=== PATIENT | female | born 1985 | race Caucasian/White ===

== ENCOUNTER 2016-11-24 19:21 | Inpatient (IN) | payer SELFPAY ==
[2016-11-24 19:27] VITALS: TEMP 97.7
--- NOTE | 2016-11-24 20:43 | OBPROG ---
OBG Progress Note Assessment/Plan: Assessment: IUP at 26 weeks Abdominal pain Morbid obesity Garand multip Plan: Stable from Obstetrical evaluation periumbilical hernia 3x3 cm difficult to eval 131KG Labs sent CBC and Chem Patient to return to ED for further evaluation for hernia and abdominal pain 11/24/16 20:39 11/24/16 20:51 Subjective: Patient is a 31 year old G7 P 5 at 26 weeks gestation being seen at [facility] who presents for evaluation for abdominal hernia and pain. Patient states has had known hernia for 10 days and started to really hurt today after a meal. Patient ate one hour ago and started having severe pain, No nausea, no emesis, no contractions no bleeding. and NO leaking of fluid Objective: Temp Pulse Resp BP Pulse Ox 36.5 C 94 24 H 133/76 H 96 11/24/16 19:25 11/24/16 19:25 11/24/16 19:25 11/24/16 19:25 11/24/16 19:25 - SVE Dilation (cm): 0 Effacement (%): 0 Station: -3 (extertnal os soft fingertip Cervix is long and internal os closed) Current Contraction Pattern: Other (Specify) (none) FHR (bpm): 140 FHR Pattern Variability: Moderate FHR Category: 1 Membranes: Intact Uterine Position/Fundal Height: Umbilicus +3 - Physical Exam General Appearance: mild distress Neck: non-tender, full range of motion, supple, normal inspection Respiratory: chest non-tender, lungs clear, normal breath sounds Cardiac/Chest: normal peripheral pulses, regular rate, rhythm Abdomen: normal bowel sounds, other (small periumbilical hernia 3x3cm difficult to evaluate) Extremities: normal range of motion Back: Normal inspection Skin: normal color Neuro/Psych: no motor/sensory deficits, alert, normal mood/affect, oriented x 3 ICD10 Worksheet Patient Problems: Problems Problem Status Diagnosed Abdominal pain Acute Hernia Acute Acute - ICD10 Problem Qualifiers (1) Qualifiers: Weeks of gestation: 26 weeks Qualified Description: 26 weeks gestation of Qualifier Code(s): (Z3A.26) 26 weeks gestation of (2) Hernia (3) Abdominal pain Qualifiers: Abdominal location: periumbilical Qualified Description: Periumbilical abdominal pain Qualifier Code(s): (R10.33) Periumbilical pain
[2016-11-24 21:05] LABS: HEMATOCRIT 35.8 % (38.0-47.0); HEMOGLOBIN 11.9 g/dL (12.6-16.3); MEAN CELL HEMOGLOBIN 30.4 pg (27.9-34.1); MEAN CELL HEMOGLOBIN CONCENTR. 33.2 g/dL (32.4-36.7); MEAN CELL VOLUME 91.3 fL (81.5-99.8); RED BLOOD CELL COUNT 3.92 10^6/uL (4.18-5.33); RED CELL DISTRIBUTION WIDTH 12.8 % (11.5-15.2)
[2016-11-24 21:34] LABS: ANION GAP 13 mEq/L (8-16); CALCIUM 9.4 mg/dL (8.5-10.4); CARBON DIOXIDE 21 mEq/l (22-31); CHLORIDE 105 mEq/L (97-110); CREATININE 0.6 mg/dL (0.6-1.0); GLOMERULAR FILTRATION RATE > 60; GLUCOSE 81 mg/dL (70-100); POTASSIUM 3.8 mEq/L (3.5-5.2); SODIUM 139 mEq/L (134-144)
--- NOTE | 2016-11-24 21:50 | EDPHY ---
HPI/HX/ROS/PE/MDM Narrative: Chief complaint: Abdominal pain HPI: 31-year-old who is a 26+ 6 weeks with a single live IUP presenting with abdominal pain worsening for the last 2 days. Patient states the pain is in her upper abdomen where she has a known hernia from a prior gallbladder surgery. Patient was seen initially labor and delivery with seen by Dr. Bee OBGYN. Patient's cervical os was closed. She is not in labor and has good function. She is sent here for further evaluation of possible hernia pain. Patient states she has had intermittent pain for months but has been significantly worse the last 2 days. No nausea or vomiting. No fevers or chills. No constipation or diarrhea. ROS: 10 point Review of Systems is negative except as noted in the HPI. Physical exam: Gen: Awake, Alert, No Distress HEENT: Nose: no rhinorrhea Eyes: PERRLA, EOMI Mouth: Moist mucosa Neck: Supple, no JVD Chest: nontender, lungs clear to auscultation Heart: S1, S2 normal, no murmur Abd: Patient is morbidly obese. Abdomen is soft with no guarding. She has tenderness in the right upper quadrant and periumbilical area around her surgical scar. She is difficult to examine secondary to her obesity. She does have focal tenderness in the small amount of fullness at the surgical site. Back: no CVA tenderness, no midline tenderness Ext: no edema, non-tender Skin: no rash Neuro: CN II-XII intact, Sensation grossly intact, Strength 5/5 in bilateral upper and lower extremities ED Course: Abdominal ultrasound shows what appears to be incarceration in the incisional hernia. This could be possibly omentum or bowel. Patient seen by Dr. Tobias Sears, general surgery. He has reviewed the ultrasound. His [place] taken to the operating room for laparoscopic look to evaluate for possible incarcerated hernia. General Time Seen by Provider: 11/24/16 20:58 Initial Vital Signs: Initial Vital Signs Temperature (C) 36.5 C 11/24/16 19:25 Heart Rate 94 11/24/16 19:25 Respiratory Rate 24 H 11/24/16 19:25 Blood Pressure 133/76 H 11/24/16 19:25 O2 Sat (%) 96 11/24/16 19:25 O2 Delivery Mode Room Air Allergies/Adverse Reactions: No Known Allergies Allergy (Verified 11/24/16 19:33) Home Medications: Medication Instructions Recorded 11/24/16 Departure - Departure Disposition: [facility] Inpatient Acute Clinical Impression: Incarcerated hernia Condition: Fair
--- NOTE | 2016-11-24 22:29 | US ---
Ultrasound of the Abdomen Limited HISTORY: Abdominal pain. Abdominal wall hernia. FINDINGS: Ultrasound imaging in the right upper quadrant area of pain demonstrates an abdominal wall hernia defect in the right mid abdomen with a loop of bowel extending through the hernia defect. Dr. Tobias Sears was present during examination. IMPRESSION: Right-sided abdominal wall hernia with bowel extending through the hernia.
[2016-11-24 22:36] VITALS: BP 136/86; PULSE 85; RESP 18; O2SAT 95
[2016-11-24 22:38] LABS: ALBUMIN 3.5 g/dL (3.5-5.0); BILIRUBIN,TOTAL 0.4 mg/dL (0.1-1.4); BILIRUBIN-CONJUGATED 0.2 mg/dL (0.0-0.5); BILIRUBIN-UNCONJUGATED 0.2 mg/dL (0.0-1.1)
--- NOTE | 2016-11-24 23:12 | US ---
Ultrasound Biophysical Profile at 2241 hours History: Abdominal wall hernia, preop, 26 weeks . Findings: Transabdominal ultrasound imaging of the gravid uterus demonstrates a single viable fetus w ith the heart rate of 120 beats per minute. biophysical profile demonstrates: breathing = 0 out of 2 points movement = 2 out of 2 points tone = 2 out of 2 points MIKA = 2 out of 2 points Impression: 1. biophysical profile 6 out of 8 points. 2. Amniotic MVP of 3 cm. 3. heart rate 120 beats per minute. Findings and recommendations discussed with Dr. Bee at 2305 hour, today.
[2016-11-24] MEDS ORDERED: MIDAZOLAM 2 MG/2 ML VIAL ONE (23:31)
[2016-11-24] MEDS ORDERED: fentaNYL 100 MCG/2 ML INJ ONE (23:32)
[2016-11-24] MEDS ORDERED: morphINE PF 5 MG/10 ML INJ ONE (23:35)
[2016-11-24] MEDS ORDERED: PROPOFOL/EMULSION 500 MG/50 ML BOTTLE IV ONE (23:42)
[2016-11-24] MEDS ORDERED: BUPIVACAINE 0.5% 30 ML SDV ONE (23:45)
[2016-11-24] MEDS ORDERED: ceFAZolin 1 GM VIAL ONE ×2 (23:48)
[2016-11-24] MEDS ORDERED: DEXAMETHASONE 4 MG/ML VIAL ONE (23:50)
[2016-11-24] MEDS ORDERED: ONDANSETRON 4 MG/2 ML VIAL ONE (23:50)
--- NOTE | 2016-11-25 00:08 | GHP ---
[f rep st] PREOP HISTORY AND PHYSICAL DATE OF ADMISSION: 11/24/2016 CHIEF COMPLAINT: The patient is a 31-year-old female who presents to the ER with abdominal pain, and complaining of a bulge above her umbilicus, which is quite tender. She has had some symptoms there for 2-3 weeks. She had a previous laparoscopic cholecystectomy through that area. HISTORY OF PRESENT ILLNESS: Present illness is complicated by the fact that she is 26 weeks , and has had some difficulties with pregnancies before, although she has had 5 children. She is jennifer te overweight, but the heart tones appear to be normal, and the ultrasound assessment of the ba by appears to be quite normal at this time. Ultrasound evaluation of the abdominal wall reveals a mi dline hernia with non-peristalsing bowel within the hernia sac and some fluid. There is some blood f low in and out of the sac, but the hernia is nonreducible in the emergency room. The risks and optio ns have been fully discussed with the patient and her , along with OB doctor and Anesthesia. We have offered her the option of a helicopter transfer to [place] to a higher care unit in [facility] in case there is some difficulty with her , with premature labor from the surgery. She prefers to stay here and not be transferred, and it is also complicated by the fact she has already b een here in the emergency room for 3-4 hours, and we need to move on her incarcerated hernia BETHANIE. PAST MEDICAL HISTORY: Includes a laparoscopic cholecystectomy, and the orthopedic repair of her left knee patellar fracture. MEDICATIONS: None. ALLERGIES: None. REVIEW OF SYSTEMS: Reveals no complicating medical problems, other than being overweight. She has n o hypertension, cardiac issues, asthma, diabetes, renal problems, etc, on a full complete review of s ystems. PHYSICAL EXAMINATION: GENERAL: Reveals an alert, cooperative, but uncomfortable 31-year-old female in no acute distress. HEAD AND NECK: Exam reveals her to be nonicteric. There is no adenopathy. C HEST: Clear to auscultation and percussion. CARDIAC: Regular rhythm. ABDOMEN: Quite obese and pr otuberant. She has scars from laparoscopic cholecystectomy, and she has a palpable tender mass in th e supraumbilical area consistent with an incarcerated hernia, and no other abdominal masses, and no o ther abdominal tenderness. Does have some bowel sounds. EXTREMITIES: Benign, with full pulses. IMPRESSION: 1. Incarcerated incisional ventral hernia. 2. [id number]-[id number] intrauterine . PLAN: An open urgent repair of incarcerated ventral hernia. Again, the risks and options have been fully discussed with the patient, including with a nurse practitioner, and the OB doctor, An esthesia, ER doctor, and myself, and she wishes to proceed with surgery here. Again, she has been of fered a flight to [place] to a high-risk area to have her surgery in case there were some com plications, and she is aware of the slight, but definite risk of premature contractions and premature labor. She is at the safest time for surgery in the second trimester. These issues have been ann jimenez discussed between all the parties, and she wishes to proceed. /[id number]/MODL
[2016-11-25] MEDS ORDERED: fentaNYL 100 MCG/2 ML INJ IVP PRN (00:17)
[2016-11-25] MEDS ORDERED: LABETALOL HCL 5 MG/ML 20 ML MDV IVP PRN (00:17)
[2016-11-25] MEDS ORDERED: NALOXONE HCL 0.4 MG/ML INJ IVP PRN (00:17)
[2016-11-25] MEDS ORDERED: PHENYLEPHRINE HCL 100 MCG/ML SYR IVP PRN (00:17)
[2016-11-25] MEDS ORDERED: ONDANSETRON 4 MG/2 ML VIAL IVP PRN (00:17)
[2016-11-25] MEDS ORDERED: OXYCODONE/APAP 5/325 TAB PO PRN (00:17)
[2016-11-25] MEDS ORDERED: MEPERIDINE 25 MG/ML SYR IVP PRN (00:17)
[2016-11-25] MEDS ORDERED: METOCLOPRAMIDE 10 MG/2 ML VIAL IVP PRN (00:17)
[2016-11-25] MEDS ORDERED: PHENYLEPHRINE HCL 100 MCG/ML SYR ONE (00:26)
--- NOTE | 2016-11-25 00:40 | POSTOPPROG ---
Post Op Note Date of Operation: 11/25/16 Surgeon: Tobias Sears Anesthesiologist: KIRSTEN Anesthesia: Spinal Pre-op Diagnosis: INCARCERATED INCISIONAL HERNIA Post-op Diagnosis: SAME Indication: BOWEL INCARCERATION Procedure: OPEN REPAIR INCARCERATED VENTRAL HERNIA Findings: VIABLE BOWEL/ 3CM DEFECT Inf/Abcess present in the surg proc area at time of surgery?: No Depth: Organ Space EBL: Minimal Complications: 0 Specimen(s): HERNIA SAC
[2016-11-25] MEDS ORDERED: HYDROmorphONE/DILAUDID 1 MG/ML SYR IVP PRN (00:42)
[2016-11-25] MEDS ORDERED: D5W 1/2 NS W/ 20 KCl/L 1,000 ML IV SCH (00:45)
[2016-11-25] MEDS: HYDROCODONE/APAP 5/325 TAB PO PRN ×5 (02:33→19:11)
--- NOTE | 2016-11-25 05:56 | SOAPPROG ---
SOAP Progress Note Assessment/Plan: Assessment: IUP at 26 weeks POD #0 s/p open repair of incarcerated bowel and ventral hernia Plan: Stable from Obstetrical evaluation continue monitoring Continue post operative care 11/24/16 20:39 11/24/16 20:51 11/25/16 05:52 Subjective: Min pain this morning. Feels occasional movement. no leaking of fluid no contractions no bleeding Objective: Vital Signs Temp Pulse Resp BP Pulse Ox 36.5 C 85 18 136/86 H 95 11/24/16 19:25 11/24/16 22:36 11/24/16 22:36 11/24/16 22:36 11/24/16 22:36 Laboratory Results 11/24/16 20:03 11/24/16 20:03 11/23/16 11/24/16 11/25/16 05:59 05:59 05:59 Intake Total 200 Balance 200 - Pending Discharge Pending Discharge Within 48 Hours: Yes Pending Discharge Date: 11/27/16 Pending Discharge Time: 11:00 Physical Exam - Physical Exam Respiratory: chest non-tender, lungs clear, normal breath sounds Cardiac/Chest: normal peripheral pulses, regular rate, rhythm Abdomen: normal bowel sounds, other (Gravid uterus. Ultrasound: burr Active + Cardiac activity adequate fluid 0545 11/25/16) Skin: normal color, warm/dry Extremities: normal range of motion, non-tender, normal inspection, normal capillary refill, other (SCD to lower extremities) Neuro/Psych: no motor/sensory deficits, alert, normal mood/affect, oriented x 3 ICD10 Worksheet Patient Problems: Problems Problem Status Diagnosed Abdominal pain Acute Hernia Acute Incarcerated hernia Acute Acute - ICD10 Problem Qualifiers (1) Qualifiers: Weeks of gestation: 26 weeks Qualified Description: 26 weeks gestation of Qualifier Code(s): (Z3A.26) 26 weeks gestation of (2) Hernia (3) Abdominal pain Qualifiers: Abdominal location: periumbilical Qualified Description: Periumbilical abdominal pain Qualifier Code(s): (R10.33) Periumbilical pain
--- NOTE | 2016-11-25 10:04 | SOAPPROG ---
SOAP Progress Note Assessment/Plan: Assessment: 31yo female s/p open ventral hernia repair, 26 weeks . Stable from OB perspective today. tolerating clears, passing small amount of gas, worried about giving and rupturing hernia repair, wants to go home. PE awake, alert comfortable abdomen midline bandage dry, abdomen soft, nontender Plan: regular diet possibly home late today (probably Friday) if ambulates well, tolerates regular diet, if ok from OB perspective. will discuss with Dr Sears reviewed lifting restrictions 11/25/16 10:01 Objective: Vital Signs Temp Pulse Resp BP Pulse Ox 36.5 C 85 18 136/86 H 95 11/24/16 19:25 11/24/16 22:36 11/24/16 22:36 11/24/16 22:36 11/24/16 22:36 Laboratory Results 11/24/16 20:03 11/24/16 20:03 11/24/16 11/25/16 11/26/16 05:59 05:59 05:59 Intake Total 200 Balance 200 ICD10 Worksheet Patient Problems: Problems Problem Status Diagnosed Abdominal pain Acute Hernia Acute Incarcerated hernia Acute Acute
[2016-11-25] MEDS: PRENATAL VIT 1 EACH TAB PO SCH (10:28)
--- NOTE | 2016-11-25 10:34 | SOAPPROG ---
SOAP Progress Note Assessment/Plan: Assessment: 12 MALE WITH RLQ PAIN, BETTER AFTER MORPHINE/ WBC OK BUT US SHOWS DISTAL APPENDICITIS ABD SOFT WITH SOME RLQ TENDERNESS BUT NO REBOUND UNCERTAIN ABOUT APPENDICITIS EXCEPT FOR US FINDINGS RISKS AND OPTIONS FULLY DISCUSSED WITH PT AND MOM WHO WISH TO PROCEED Plan: LENIN APPE 11/25/16 10:32 Objective: Vital Signs Temp Pulse Resp BP Pulse Ox 36.5 C 85 18 136/86 H 95 11/24/16 19:25 11/24/16 22:36 11/24/16 22:36 11/24/16 22:36 11/24/16 22:36 Laboratory Results 11/24/16 20:03 11/24/16 20:03 11/24/16 11/25/16 11/26/16 05:59 05:59 05:59 Intake Total 200 Balance 200 ICD10 Worksheet Patient Problems: Problems Problem Status Diagnosed Abdominal pain Acute Hernia Acute Incarcerated hernia Acute Acute
--- NOTE | 2016-11-25 10:36 | POSTOPPROG ---
Post Op Note Date of Operation: 11/25/16 Surgeon: Tobias Sears Quebracho Tanner: ALECIA HILL Anesthesiologist: MARYJANE Anesthesia: GET(General Endotracheal) Pre-op Diagnosis: ACUTE APPE Post-op Diagnosis: SAME Indication: + IMAGING Procedure: LAP APPE Findings: DISTAL APPENDIX INFLAMMATION AND SEROUS PELVIC FLUID Inf/Abcess present in the surg proc area at time of surgery?: Yes Depth: Organ Space EBL: Minimal Complications: 0 Specimen(s): APPENDIX
--- NOTE | 2016-11-25 10:42 | SOAPPROG ---
SOAP Progress Note Assessment/Plan: Assessment: 12 MALE WITH RLQ PAIN, BETTER AFTER MORPHINE/ WBC OK BUT US SHOWS DISTAL APPENDICITIS ABD SOFT WITH SOME RLQ TENDERNESS BUT NO REBOUND UNCERTAIN ABOUT APPENDICITIS EXCEPT FOR US FINDINGS RISKS AND OPTIONS FULLY DISCUSSED WITH PT AND MOM WHO WISH TO PROCEED Plan: LAP APPE 11/25/16 10:32 11/25/16 10:41 PREVIOUS NOTE AND OPNOTE ON WRONG PT BUT UNABLE TO REMOVE/ THIS PT DIDNOT HAVE APPENDECTOMY Objective: Vital Signs Temp Pulse Resp BP Pulse Ox 36.5 C 85 18 136/86 H 95 11/24/16 19:25 11/24/16 22:36 11/24/16 22:36 11/24/16 22:36 11/24/16 22:36 Laboratory Results 11/24/16 20:03 11/24/16 20:03 11/24/16 11/25/16 11/26/16 05:59 05:59 05:59 Intake Total 200 Balance 200 ICD10 Worksheet Patient Problems: Problems Problem Status Diagnosed Abdominal pain Acute Hernia Acute Incarcerated hernia Acute Acute
--- NOTE | 2016-11-25 11:45 | GOP ---
[f rep st] OPERATIVE REPORT DATE OF OPERATION: 11/25/2016 SURGEON: Tobias Sears MD OPHTHALMOLOGIST RETINA SPECIALIST: None. ANESTHESIOLOGIST: Dr. Joseph. PREOPERATIVE DIAGNOSIS: Incarcerated incisional ventral hernia. POSTOPERATIVE DIAGNOSIS: Incarcerated incisional ventral hernia. PROCEDURE PERFORMED: Open repair of incarcerated incisional ventral hernia. FINDINGS: The patient was found to have friable bowel, which reduced itself on initiation of spinal anesthesia. She had a tight hernia defect of approximately 3 cm just above the umbilicus, previous l aparoscopy trocar site. DESCRIPTION OF PROCEDURE: Patient taken to the operating room, where she received satisfactory gener al endotracheal anesthesia by Dr. Joseph, placed in supine position but tilted to the her left with a wedge support. She was prepped and draped in the usual sterile fashion. A longitudinal incision was made just above her umbilicus. Dissection extended down through subcutaneous tissue, and the hernia sac was identified. It was carefully dissected free from surrounding subcutaneous tissue and away f rom the umbilical skin. The sac was opened and its contents were reduced. The umbilical sac was div ided with electrocautery and removed. Hemostasis was assured. The defect was then closed in a pants -over-vest 2-layer closure with interrupted 0 Ethibond mattress sutures. A 2nd small, less than 1 cm defect, was found just above this area and it, too, was closed with 0 Ethibond [id number] sutur es. The wound was infiltrated with Marcaine. Subcu was closed with 3-0 Vicryl, and the skin with sk in taras. She tolerated the procedure well, was taken to recovery room in good condition. There w ere no complications. No obvious problems with her intrauterine . She will be monitored ag ain in the recovery room. Copy requested to: [facility] /[id number]/MODL
[2016-11-25] MEDS ORDERED: DOCUSATE SODIUM 100 MG CAP PO ONE (16:04)
[2016-11-25] MEDS: DOCUSATE SODIUM 100 MG CAP PO SCH ×2 (16:11→19:04)
--- NOTE | 2016-11-25 20:21 | SOAPPROG ---
SOAP Progress Note Assessment/Plan: Assessment: Records reviewed from [facility] in [facility]: Patient is 26w6d today, MIGUEL = 02/25/17 (by 14 week US, not consistent with LMP) Prior x term x 5. 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 FOB tested and is not a K antigen carrier. No further f/u per [facility] H/o of macrosomic (>4000 pounds). Had early 1 hr this ( resulted 11/21 = 154). will need follow up for 3 hr glucola Normal anatomy US at 25 weeks, completed at [facility], fetus 53rd% (11/12/16) Known abdominal hernia, now s/p repair as she presented with incarceration last night Pt desires sterilization, is undergoing process to get this completed at [facility] Morbid obesity-weight gain is being monitored closely, and also growth is planned at 28 weeks No record of any genetic screening being performed. Possible chronic hypertension, had an elevated BP when evaluated in ED for pain , otherwise BPs are all less than 140/90 at her visits. Labs reviewed: B+, anti-K pos Hct 39% Rub non-immune RPR, HBsAg, HIV NR GC/CT Neg Patient is currently doing well from an OB standpoint. FHR reassuring, NST reviewed, FHR 130-140, moderate variability, + accels, no decels. No contractions. No evidence of labor. Plan: Post-op care per general surgery Patient will need close outpatient OB follow-up with her care providers after discharge. She is due for another growth US (28 weeks) and also a 3 hr glucola. labor precautions given. 11/25/16 20:07 11/25/16 20:22 Subjective: Pain controlled with medications. No contractions, leaking, bleeding. Baby active. Has ambulated and void. Passing a little flatus. Tolerating regular diet. Objective: Vital Signs Temp Pulse Resp BP Pulse Ox 36.5 C 85 18 136/86 H 95 11/24/16 19:25 11/24/16 22:36 11/24/16 22:36 11/24/16 22:36 11/24/16 22:36 Laboratory Results 11/24/16 20:03 11/24/16 20:03 11/24/16 11/25/16 11/26/16 05:59 05:59 05:59 Intake Total 200 Balance 200 Gen: alert, awake, NAD Resp: unlabored, nasal cannula O2 in place CV: RRR Abd: obese, soft, bandage clean/dry/intact, appropriately tender Ext: no edema ICD10 Worksheet Patient Problems: Problems Problem Status Diagnosed Abdominal pain Acute Hernia Acute Incarcerated hernia Acute Acute
[2016-11-25] MEDS: SIMETHICONE 80 MG TAB CHEW PO SCH (21:25)
[2016-11-25] MEDS ORDERED: CEFAZOLIN 1 GM/DEXTROSE/50 ML BAG IV ONE (23:46)
[2016-11-25] MEDS: OXYCODONE/APAP 5/325 TAB PO PRN (23:48)
[2016-11-26] MEDS: OXYCODONE/APAP 5/325 TAB PO PRN ×2 (05:26→10:03)
--- NOTE | 2016-11-26 08:16 | SOAPPROG ---
SOAP Progress Note Assessment/Plan: Assessment/Plan: 31 Y gravid F s/p open incarcerated umbilical hernia repair. Doing well. D/c to home today. Seen with OB. 11/26/16 08:14 Subjective: Pain controlled. Eating fine. Using binder bc of cough. Objective: Vital Signs Temp Pulse Resp BP Pulse Ox 36.5 C 85 18 136/86 H 95 11/24/16 19:25 11/24/16 22:36 11/24/16 22:36 11/24/16 22:36 11/24/16 22:36 Laboratory Results 11/24/16 20:03 11/24/16 20:03 11/25/16 11/26/16 11/27/16 05:59 05:59 05:59 Intake Total 200 Balance 200 alert, nad no wob rrr abd soft, gravid, inc cdi, no erythema, no recurrent hernia ICD10 Worksheet Patient Problems: Problems Problem Status Diagnosed Abdominal pain Acute Hernia Acute Incarcerated hernia Acute Acute
--- NOTE | 2016-11-26 08:17 | SOAPPROG ---
SOAP Progress Note Assessment/Plan: Assessment: 12 MALE WITH RLQ PAIN, BETTER AFTER MORPHINE/ WBC OK BUT US SHOWS DISTAL APPENDICITIS ABD SOFT WITH SOME RLQ TENDERNESS BUT NO REBOUND UNCERTAIN ABOUT APPENDICITIS EXCEPT FOR US FINDINGS RISKS AND OPTIONS FULLY DISCUSSED WITH PT AND MOM WHO WISH TO PROCEED Plan: LAP APPE 11/25/16 10:32 11/25/16 10:41 PREVIOUS NOTE AND OPNOTE ON WRONG PT BUT UNABLE TO REMOVE/ THIS PT DIDNOT HAVE APPENDECTOMY 11/26/16 08:17 WOUND OK/ AFEBRILE/ EATING/ BABY OK/ HOME SOON Objective: Vital Signs Temp Pulse Resp BP Pulse Ox 36.5 C 85 18 136/86 H 95 11/24/16 19:25 11/24/16 22:36 11/24/16 22:36 11/24/16 22:36 11/24/16 22:36 Laboratory Results 11/24/16 20:03 11/24/16 20:03 11/25/16 11/26/16 11/27/16 05:59 05:59 05:59 Intake Total 200 Balance 200 ICD10 Worksheet Patient Problems: Problems Problem Status Diagnosed Abdominal pain Acute Hernia Acute Incarcerated hernia Acute Acute
--- NOTE | 2016-11-26 08:21 | SOAPPROG ---
SOAP Progress Note Assessment/Plan: Assessment: 31 y.o. at 27 weeks post-op day #2 s/p hernia repair. General surgery was in and examined patient and removed bandage with taras noted. Incision appears CDI and well-approximated with taras intact without evidence of infection noted. Plan: General surgery will discharge patient to home with post-operative precautions. Encouraged patient to call her OB clinic and schedule f/u appointment this week. Patient discharged to home with PTL precautions, warning signs and FKCs. 11/26/16 08:17 Subjective: Reports feeling fatigued with good pain control. Reports feeling good movement. Denies vaginal bleeding, uterine cramping/ contractions or leaking amniotic fluid. Objective: Vital Signs Temp Pulse Resp BP Pulse Ox 36.5 C 85 18 136/86 H 95 11/24/16 19:25 11/24/16 22:36 11/24/16 22:36 11/24/16 22:36 11/24/16 22:36 Laboratory Results 11/24/16 20:03 11/24/16 20:03 11/25/16 11/26/16 11/27/16 05:59 05:59 05:59 Intake Total 200 Balance 200 - Time Spent With Patient Time Spent With Patient: 20 minutes - Pending Discharge Pending Discharge Within 24 Hours: Yes Pending Discharge Date: 11/27/16 Pending Discharge Time: 11:00 Physical Exam - Physical Exam General Appearance: WD/WN, alert, no apparent distress EENT: normal ENT inspection Neck: non-tender, normal inspection Respiratory: lungs clear, normal breath sounds Cardiac/Chest: regular rate, rhythm Abdomen: non-tender, soft, other (incision with taras is CDI) Pelvic Exam: deferred Rectal: deferred Back: Normal inspection Skin: normal color, warm/dry Lymphatic: no adenopathy Extremities: normal range of motion Neuro/Psych: alert, normal mood/affect, oriented x 3 ICD10 Worksheet Patient Problems: Problems Problem Status Diagnosed Abdominal pain Acute Hernia Acute Incarcerated hernia Acute Acute
[2016-11-26] MEDS: PRENATAL VIT 1 EACH TAB PO SCH (10:03)
[2016-11-26] MEDS: SIMETHICONE 80 MG TAB CHEW PO SCH ×2 (10:03→14:37)
[2016-11-26] MEDS: DOCUSATE SODIUM 100 MG CAP PO SCH (10:03)
--- NOTE | 2016-12-03 14:37 | GDS ---
[f rep st] DISCHARGE SUMMARY DISCHARGE DIAGNOSES: 1. Incarcerated periumbilical ventral hernia. 2. Gravid at 27 weeks. PROCEDURES: Open repair of incarcerated incisional ventral hernia. INTRAOPERATIVE FINDINGS: Patient was found to have friable bowel, which reduced itself on initiation of spinal anesthesia. She had a tight hernia defect of approximately 3 cm just above the umbilicus at a previous laparoscopic trocar site. CONSULTATION: Dr. Padmini aMrie MD, [facility]. HOSPITAL COURSE: The patient was a 31-year-old female who was 27 weeks when she presented w ith an incarcerated, painful, periumbilical ventral hernia. Obstetrics was consulted. Decision was made to bring the patient to the operating room with spinal anesthesia for repair. The procedure was uncomplicated. She tolerated it well. Monitoring showed no signs of distress. The patient's postoperative course was relatively uneventful. monitoring was continued. Her p ain was controlled. Her diet was advanced. DISCHARGE INSTRUCTIONS: Patient was discharged to home in stable condition with plans for outpatient followup. She will eventually need staple removal. We also asked her to contact her regular [facility] , as they will likely want to see her in the near future as well. She is to avoid any heavy lifting, pushing, or pulling. We also discussed the chance that this could recur during labor due to pressur e, however, she is due in February, and hopefully she will be healed enough and avoid this. /[id number]/MODL
== END 2016-11-26 13:45 | disposition home or self-care (01) | DRG 781 ==
LOC: OBSVTOIN 19:47 → FLD 19:47
PROVIDERS: ADMIT Obstetrics & Gynecology; ATTEND Obstetrics & Gynecology
PROC: 0WQF0ZZ Repair Abdominal Wall, Open Approach (ICD-10-PCS; principal; 2016-11-24 23:30)
DX: O99.612 Diseases of the digestive system complicating pregnancy, second trimester (principal); K43.0 Incisional hernia with obstruction, without gangrene; O99.212 Obesity complicating pregnancy, second trimester; E66.01 Morbid (severe) obesity due to excess calories; Z68.42 Body mass index [BMI] 45.0-49.9, adult; Z3A.36 36 weeks gestation of pregnancy
CPT/HCPCS: 86850-90; 86870-90; 86905-90; 99001-90; J0690; J1100; J2250; J2274; J2370; J2405; J2704; J3010

== ENCOUNTER 2017-08-25 05:54 | Emergency (ER) | payer SELFPAY ==
[2017-08-25 06:03] VITALS: TEMP 98.8
[2017-08-25] MEDS ORDERED: IBUPROFEN 600 MG TAB PO ONE (06:20)
[2017-08-25] MEDS ORDERED: SUMAtriptan 6 MG/0.5 ML VIAL SC ONE (06:20)
[2017-08-25] MEDS ORDERED: ACETAMINOPHEN 500 MG TAB PO ONE (06:20)
[2017-08-25] MEDS ORDERED: METOCLOPRAMIDE 10 MG TAB PO ONE (06:21)
--- NOTE | 2017-08-25 06:25 | EDPHY ---
H & P Stated Complaint: r sided head ache and vision spots Time Seen by Provider: 08/25/17 06:09 HPI/ROS: HPI The patient presents with headache which is right-sided, frontal, throbbing in nature it has been present for the last 2 days. It started slowly and has not improved, thus she comes in. She has taken a Percocet with some improvement in her headache. She had associated nausea and vomiting yesterday. She reports that she saw a bright light in her visual field when she got up from sleep 2 nights ago lasting for seconds and then resolving on its own. She has no vision changes currently. Three days ago, she got news that her school age daughter was having some difficulty in school and was going to have some interventions. This caused her to feel very stressed and anxious and she feels this is what provoked her headache. She does not have a prior history of migraine headaches. REVIEW OF SYSTEMS Constitutional: No fever, no chills. Eyes: No discharge. ENT: No sore throat. Cardiovascular: No chest pain, no palpitations. Respiratory: No cough, no shortness of breath. Gastrointestinal: No abdominal pain, positive for vomiting. Genitourinary: No hematuria. Musculoskeletal: No back pain. Skin: No rashes. Neurological: Positive for headache PMHx: Currently breast-feeding 6-month-old, history of cholecystectomy and appendectomy Soc Hx: Lives at home with and 6 kids PHYSICAL General Appearance: Alert, no distress Eyes: Pupils equal and round no pallor or injection ENT, Mouth: Mucous membranes moist Respiratory: There are no retractions, lungs are clear to auscultation Cardiovascular: Regular rate and rhythm Gastrointestinal: Abdomen is soft and non-tender, no masses, bowel sounds normal Neurological: A&O x3, cranial nerves 2-12 intact, 5/5 strength in upper and lower extremities which is symmetric. Skin: Warm and dry, no rashes Musculoskeletal: Neck is supple non tender Extremities: symmetrical, full range of motion Psychiatric: Patient is oriented X 3, there is no agitation Source: Patient Exam Limitations: No limitations - Personal History LMP (Females 10-55): Over 28 Days Ago Current Tetanus/Diphtheria Vaccine: Yes Current Tetanus Diphtheria and Acellular Pertussis (TDAP): Yes - Medical/Surgical History Hx Asthma: No Hx Chronic Respiratory Disease: No Hx Diabetes: No Hx Cardiac Disease: No Hx Renal Disease: No Hx Cirrhosis: No Hx Alcoholism: No Hx HIV/AIDS: No Hx Splenectomy or Spleen Trauma: No Other PMH: Gall bladder removed 2016. Appendectomy. Knee surgery . anemia. ovaran cyst - Social History Smoking Status: Never smoked Constitutional: Initial Vital Signs Temperature (C) 37.1 C 08/25/17 05:58 Heart Rate 85 08/25/17 05:58 Respiratory Rate 20 08/25/17 05:58 Blood Pressure 119/79 08/25/17 05:58 O2 Sat (%) 96 08/25/17 05:58 O2 Delivery Mode Room Air Allergies/Adverse Reactions: No Known Allergies Allergy (Verified 11/24/16 19:33) Home Medications: Medication Instructions Recorded Ondansetron Odt [Zofran Odt 4 mg 4 mg PO Q4 PRN #10 tab 08/25/17 (*)] Medical Decision Making Differential Diagnosis: This is a 31-year-old female who presents with 2 days of progressive unilateral throbbing headache associated with photophobia. On exam she has a normal neurologic assessment. Differential diagnosis includes migraine headache, tension type headache, less likely meningitis given no fever or nuchal rigidity, less likely subarachnoid hemorrhage given no neurologic deficits. In the emergency department, the patient received oral medications per her preference. She had improvement in her headache. I feel migraine is the most likely cause of her symptoms. As she will be discharged home with follow up with her primary care doctor. Departure - Departure Disposition: Home, Routine, Self-Care Clinical Impression: Headache Qualifiers: Headache type: unspecified Headache chronicity pattern: acute headache Intractability: not intractable Qualified Code(s): R51 - Headache Condition: Good Instructions: Acute Headache (ED), Migraine Headache (ED) Additional Instructions: Please make sure to drink plenty of fluids. You should take Ibuprofen 400 mg every 6 hours as needed for your headache. I have given you a prescription for some medicine for nausea that you can take as needed. Referrals: [facility],. [Primary Care Provider] - As per Instructions Prescriptions: Ondansetron Odt [Zofran Odt 4 mg (*)] 4 mg PO Q4 PRN #10 tab PRN Reason: Nausea/Vomiting, Can'T Take Po
[2017-08-25 08:01] VITALS: BP 128/74; PULSE 70; RESP 16; O2SAT 96
== END 2017-08-25 08:01 | disposition home or self-care (01) ==
DX: R51 Headache (principal)
CPT/HCPCS: J3030

== ENCOUNTER 2018-01-13 10:03 | Emergency (ER) | payer SELFPAY ==
[2018-01-13 10:10] VITALS: RESP 18
[2018-01-13] MEDS ORDERED: IBUPROFEN 600 MG TAB PO ONE ×2 (10:27→10:28)
--- NOTE | 2018-01-13 11:22 | EDPHY ---
H & P Time Seen by Provider: 01/13/18 10:32 HPI/ROS: CHIEF COMPLAINT: Right wrist injury HISTORY OF PRESENT ILLNESS: 32-year-old female presents to the emergency department with isolated pain to her right wrist. Patient states earlier this morning she had her 11 month old in a car seat and she picked it up with her right hand and somehow flexed her right wrist and felt a pop in her right wrist as well as severe pain. The pain has persisted. She is right-hand dominant. She has pain especially with movement. ROS: Denies numbness or tingling in her fingers, pain in her right hand, right elbow or shoulder. Past Medical/Surgical History: Cholecystectomy, appendectomy, knee surgery, anemia Social History: and lives in [place] Smoking Status: Never smoked Physical Exam: On examination the patient has reproducible pain with palpation of the dorsal aspect of her right wrist specially over the distal radius. There is some mild swelling associated with this. No palpable crepitus. She has full supination and pronation. She has pain especially with flexion and extension of her right wrist. Nontender to palpate in the anatomic snuffbox. Nontender to palpate in the right elbow or shoulder. Full sensation to light touch with normal 2 point discrimination. Strong radial pulse at the wrist Constitutional: Initial Vital Signs Temperature (C) 36.8 C 01/13/18 10:06 Heart Rate 79 01/13/18 10:06 Respiratory Rate 18 01/13/18 10:06 Blood Pressure 156/115 H 01/13/18 10:06 O2 Sat (%) 95 01/13/18 10:06 O2 Delivery Mode Room Air Allergies/Adverse Reactions: No Known Allergies Allergy (Verified 01/13/18 10:05) Home Medications: Medication Instructions Recorded NK [No Known Home Meds] 01/13/18 MDM/Departure - MDM Imaging Results: Imaging Impressions Wrist X-Ray 01/13/18 10:24 Impression: Possible dislocation of the distal radial ulnar joint. Results discussed with Dr. Bagley at 10:[address] 01/13/18 11:19 Impression: 1. Negative. Normally aligned distal radioulnar joint. No evidence of dislocation or subluxation. 2. No acute fracture. Findings discussed with Emergency Department physician, Maki Amaro PA-C, on 01/13/2018, 13:10. Imaging: Discussed imaging studies w/ bingo caller Radiologist, I viewed and interpreted images myself Procedures: The patient was placed in a Velcro wrist splint examined post application in good placement with normal [employer]. Medications Given: Discontinued Medications Ibuprofen (Motrin) 600 mg PO EDNOW ONE Stop: 01/13/18 10:28 Last Admin: 01/13/18 10:29 Dose: 600 mg ED Course/Re-evaluation: 32-year-old female presents with right wrist pain. On plain film x-ray there was question of possible dislocation of the distal radial ulnar joint. CT imaging of the right wrist was obtained which revealed no evidence of fracture or evidence of dislocation. Patient was placed in Velcro wrist splint and given orthopedic referral. - Depart Disposition: Home, Routine, Self-Care Clinical Impression: Right wrist sprain Qualifiers: Encounter type: initial encounter Qualified Code(s): S63.501A - Unspecified sprain of right wrist, initial encounter Condition: Good Instructions: Wrist Sprain (ED) Additional Instructions: Splint for comfort and support. Ibuprofen 600 mg every 8 hr as needed for pain. Referrals: Ronny Corral MD [Medical Doctor] - 5-7 days, call for appt. (Orthopedic surgeon on-call)
[2018-01-13 13:20] VITALS: BP 125/78; PULSE 87; TEMP 98.6; O2SAT 95
== END 2018-01-13 13:20 | disposition home or self-care (01) ==
DX: S63.501A Unspecified sprain of right wrist, initial encounter (principal); X50.9XXA Other and unspecified overexertion or strenuous movements or postures, initial encounter; Y99.8 Other external cause status; Y93.89 Activity, other specified
CPT/HCPCS: L3908

== ENCOUNTER 2018-11-10 17:44 | Emergency (ER) | payer SELFPAY ==
[2018-11-10] MEDS ORDERED: ONDANSETRON DISINTEGRATING 4 MG TAB PO ONE (18:19)
[2018-11-10] MEDS ORDERED: METOCLOPRAMIDE 10 MG/2 ML VIAL IVP ONE (18:33)
[2018-11-10] MEDS ORDERED: NS 1,000 ML IV ONE (18:33)
[2018-11-10] MEDS ORDERED: DEXAMETHASONE 10 MG/ML VIAL IVP ONE (18:33)
[2018-11-10] MEDS ORDERED: KETOROLAC 30 MG/1 ML SDV IVP ONE (18:33)
--- NOTE | 2018-11-10 18:39 | EDPHY ---
H & P Stated Complaint: rand nausea Time Seen by Provider: 11/10/18 18:29 HPI/ROS: CHIEF COMPLAINT: Headache, vomiting HISTORY OF PRESENT ILLNESS: Patient is a 33-year-old morbidly obese female who comes to the emergency department complaining of a headache and vomiting that began this morning. She states that she developed a headache soon after waking up. It was gradual in onset and worsening throughout the day. She states that it is the worst headache she has ever had. She does not typically have headaches or migraines. She denies trauma. No fever. No recent respiratory type infection. No neck pain or stiffness. No rash. She denies although has not had a period in 3 months. She states her periods are very irregular. She took Tylenol earlier this morning but has not taken any medications since. [place] the [place] up man her mom and vomited twice on the way. Severity: Severe Modifying factors: No improvement with Tylenol early this morning REVIEW OF SYSTEMS: Constitutional: denies: chills, fever, recent illness, recent injury EENTM: denies: blurred vision, double vision, nose congestion Respiratory: denies: cough, shortness of breath Cardiac: denies: chest pain, irregular heart rate, lightheadedness, palpitations Gastrointestinal/Abdominal: See HPI denies: abdominal pain, diarrhea, blood streaked stools Genitourinary: denies: dysuria, frequency, hematuria, pain Musculoskeletal: denies: joint pain, muscle pain Skin: denies: lesions, rash, jaundice, bruising Neurological: See HPI denies: numbness, paresthesia, tingling, dizziness, weakness Hematologic/Lymphatic: denies: blood clots, easy bleeding, easy bruising Immunologic/allergic: denies: HIV/AIDS, transplant 10 systems reviewed and negative except as noted EXAM: GENERAL: Well-appearing, morbidly obese and in no acute distress. HEAD: Atraumatic, normocephalic. EYES: Pupils equal round and reactive to light, extraocular movements intact, sclera anicteric, conjunctiva are normal. ENT: TMs normal, nares patent, oropharynx clear without exudates. Moist mucous membranes. NECK: Normal range of motion, supple without lymphadenopathy or JVD. LUNGS: Breath sounds clear to auscultation bilaterally and equal. No wheezes rales or rhonchi. HEART: Regular rate and rhythm without murmurs, rubs or gallops. ABDOMEN: Soft, nontender, normoactive bowel sounds. No guarding, no rebound. No masses appreciated. BACK: No CVA tenderness, no spinal tenderness, step-offs or deformities EXTREMITIES: Normal range of motion, no pitting or edema. No clubbing or cyanosis. NEUROLOGICAL: Cranial nerves II through XII grossly intact. Normal speech, normal gait. 5/5 strength, normal movement in all extremities, normal sensation , normal reflexes PSYCH: Normal mood, normal affect. SKIN: Warm, dry, normal turgor, no visible rashes or lesions. Source: Patient Exam Limitations: No limitations - Personal History LMP (Females 10-55): IUD In Place Current Tetanus Diphtheria and Acellular Pertussis (TDAP): Yes Tetanus Vaccine Date: < 10 years - Medical/Surgical History Hx Asthma: No Hx Chronic Respiratory Disease: No Hx Diabetes: No Hx Cardiac Disease: No Hx Renal Disease: No Hx Cirrhosis: No Hx Alcoholism: No Hx HIV/AIDS: No Hx Splenectomy or Spleen Trauma: No Other PMH: Gall bladder removed 2016. Appendectomy. Knee surgery . anemia. ovaran cyst - Family History Significant Family History: No pertinent family hx - Social History Smoking Status: Never smoked Alcohol Use: None Constitutional: Initial Vital Signs Temperature (C) 36.4 C 11/10/18 17:50 Heart Rate 71 11/10/18 17:50 Respiratory Rate 18 11/10/18 17:50 Blood Pressure 130/96 H 11/10/18 17:50 O2 Sat (%) 98 11/10/18 17:50 O2 Delivery Mode Room Air Allergies/Adverse Reactions: No Known Allergies Allergy (Verified 11/10/18 17:50) Medical Decision Making - Diagnostics Imaging: Discussed imaging studies w/ call center representative Radiologist ED Course/Re-evaluation: 7:20 p.m. the patient's headache is resolved. She feels completely better. She is asking to go home. She is asking for prescription of Reglan or Phenergan. We did discuss lumbar puncture and affect we cannot completely rule out subarachnoid with CT alone. The patient declines lumbar puncture. We discussed indications for returning for symptoms return or worsen. She feels comfortable with this and is eager to go home. Her is here to take her. Differential Diagnosis: Partial list of the Differential diagnosis considered include but were not limited to; the headache, sinusitis, migraine and although unlikely based on the history and physical exam, I also considered subarachnoid, aneurysm, intracranial hypertension, CVA. I discussed these differential diagnoses and the plan with the patient as well as the usual and expected course. The patient understands that the diagnosis is provisional and that in medicine we are not always correct and that further workup is often warranted. Usual and customary warnings were given. All of the patient's questions were answered. The patient was instructed to return to the emergency department should the symptoms at all worsen or return, otherwise to followup with the physician as we discussed. - Data Points Laboratory Results: Laboratory Results 11/10/18 18:55 11/10/18 18:55 Medications Given: Discontinued Medications Dexamethasone (Decadron Injection) 10 mg IVP EDNOW ONE Stop: 11/10/18 18:34 Last Admin: 11/10/18 19:07 Dose: 10 mg Sodium Chloride (Ns) 1,000 mls @ 0 mls/hr IV ONCE ONE; Wide Open PRN Reason: Protocol Stop: 11/10/18 18:34 Last Admin: 11/10/18 19:06 Dose: 1,000 mls Ketorolac Tromethamine (Toradol) 15 mg IVP EDNOW ONE Stop: 11/10/18 18:34 Last Admin: 11/10/18 19:06 Dose: 15 mg Metoclopramide HCl (Reglan Injection) 10 mg IVP EDNOW ONE Stop: 11/10/18 18:34 Last Admin: 11/10/18 19:06 Dose: 10 mg Ondansetron HCl (Zofran Odt) 4 mg PO EDNOW ONE Stop: 11/10/18 18:20 Last Admin: 11/10/18 18:21 Dose: 4 mg Promethazine HCl (Phenergan 25 Mg Prepack #4) 1 btl TAKEHOME EDNOW ONE Stop: 11/10/18 19:28 Last Admin: 11/10/18 19:55 Dose: 1 btl Departure - Departure Disposition: Home, Routine, Self-Care Clinical Impression: Headache Qualifiers: Headache type: unspecified Headache chronicity pattern: acute headache Intractability: not intractable Qualified Code(s): R51 - Headache Condition: Fair Instructions: Metoclopramide (By mouth), Promethazine (By injection), Acute Headache (DC) Additional Instructions: Take the Phenergan every 8 hr if needed for headache. Referrals: NONE *PRIMARY CARE P,. [Primary Care Provider] - As per Instructions Serena Larsen MD [Medical Doctor] - 2-3 days, if not improved
[2018-11-10] MEDS ORDERED: DEXAMETHASONE 4 MG/ML VIAL ONE (19:04)
[2018-11-10 19:10] LABS: PLATELET COUNT 217 10^3/uL (150-400)
[2018-11-10] MEDS ORDERED: PROMETHAZINE 25 MG PREPACK #4 BTL TAKEHOME ONE (19:27)
[2018-11-10 19:57] VITALS: BP 105/45
== END 2018-11-10 20:01 | disposition home or self-care (01) ==
DX: R51 Headache (principal); R11.10 Vomiting, unspecified; E66.01 Morbid (severe) obesity due to excess calories; E86.9 Volume depletion, unspecified
CPT/HCPCS: 96374; J1100; J1885; J2765

== ENCOUNTER 2018-11-16 09:06 | Emergency (ER) | payer MEDICAID ==
[2018-11-16] MEDS ORDERED: ONDANSETRON 4 MG/2 ML VIAL IVP PRN (09:53)
[2018-11-16] MEDS ORDERED: HYDROmorphONE/DILAUDID 2 MG/ML INJ IVP ONE (09:53)
[2018-11-16] MEDS ORDERED: NS 1,000 ML IV ONE (09:53)
--- NOTE | 2018-11-16 09:54 | EDPHY ---
General Time Seen by Provider: 11/16/18 09:52 Narrative: CLINICAL IMPRESSION: Abdominal pain, periumbilical hernia ASSESSMENT/PLAN: Patient is a 33-year-old female with no significant medical history who presents to the emergency department with periumbilical abdominal pain, nausea and vomiting. Patient is afebrile, uncomfortable appearing however not toxic appearing. Her abdomen was obese, tender in the periumbilical region with no appreciable hernia or mass, no peritoneal signs. CBC revealed no evidence of leukocytosis or shift. Her vital signs were reviewed and there was no evidence of sepsis or serious bacterial illness. BMP revealed no significant abnormality. Lipase and hepatic panel revealed no evidence of acute pancreatitis , acute hepatitis or acute hepatobiliary obstruction. negative. CT abdomen and pelvis revealed a small fat containing periumbilical hernia with adjacent mild omental inflammation. History and physical examination is most consistent with periumbilical pain likely related to small fat containing periumbilical hernia. There was no evidence of incarcerated hernia, obstruction, acute appendicitis, cholecystitis , kidney stone, pancreatitis, ACS, pyelonephritis, perforated viscus, diverticulitis, AAA, mesenteric ischemia, or additional emergent intra- abdominal process. negative, rules out ectopic . No pelvic complaints to suggest TOA, PID or ovarian torsion. She was given Dilaudid and Toradol with improvement of her symptoms. On repeat examination the patient is well-appearing and reports she is feeling better. The patient is well established with her primary care provider at [facility] and understands the importance of close follow-up; she will also call Dr. Sears to schedule follow-up appointment for repeat examination with him. Strict return precautions discussed- she will return for development of fever, persistent nausea and vomiting, increased or uncontrolled pain, chest pain, shortness of breath or for any other new, worsening or worrisome symptoms. Patient and her both verbalized understanding and they are in agreement with this plan. DIFFERENTIAL DX: Abdominal pain in a female including but not limited to hernia, cholecystitis, pancreatitis, bowel obstruction, ovarian cyst, pelvic inflammatory disease, ovarian torsion, urinary tract infection, and appendicitis. ED COURSE: 9:54 a.m.: Discussed with Dr. Ch CHIEF COMPLAINT: Right-sided abdominal pain, nausea and vomiting HPI: Patient is a 33-year-old female with no significant medical history and who takes no medications who presents with periumbilical abdominal pain. Patient reports yesterday she was doing dishes when she had a sudden onset periumbilical abdominal pain. She does have a history of incarcerated hernia requiring open repair by Dr. Sears 2 years prior. Patient reports that it does feel similar and is in a similar area. She woke up this morning and had nausea and emesis x1. She denies any fevers or chills. She has had no hematemesis. The pain has been constant and it is described as sharp in nature. She has not taken anything for pain. She denies any chest pain, shortness of breath, pelvic pain, vaginal bleeding or urinary symptoms to include dysuria, hematuria or increased frequency. Bowel movements have been regular and normal. PMH: Denies Pertinent Past Surgical History: Open ventral hernia repair Family History: Not contributory Social History: Denies smoking REVIEW OF SYSTEMS: All other systems negative Constitutional: No fever, no chills, appetite change. Eyes: No discharge, vision change ENT: No sore throat, congestion, ear pain. Cardiovascular: No chest pain, no palpitations. Respiratory: No cough, no shortness of breath. Gastrointestinal: Abdominal pain, nausea, vomiting. No diarrhea. Genitourinary: No hematuria, dysuria, flank pain, pelvic pain Musculoskeletal: No back pain, joint swelling, joint pain, myalgias. Skin: No rashes, color change. Neurological: No headache, dizziness, weakness. PHYSICAL EXAM: General Appearance: Obese, uncomfortable appearing however not toxic-appearing HENT: Normocephalic, atraumatic. Bilateral external ears are normal. Bilateral tympanic membranes are normal with pearly fuentes reflex. Nares are clear, mucosa is pink. Oropharynx is clear, uvula is midline. There is no tonsillar enlargement or exudate. The dentition is normal.] Eyes: PERRLA, no acute vision change, nystagmus, swelling, discharge, pain or photosensitivity. Conjunctiva pink, no pallor or injection Neck: Supple, nontender, no lymphadenopathy, no midline pain, FROM, no meningismus. Respiratory: There are no retractions, lungs are clear to auscultation. Cardiac: Regular rate and rhythm, no murmurs or gallops. Gastrointestinal: The patient is obese, well-healed incision approximately 6 cm in length right of the umbilicus. Patient is tender in the periumbilical region and her around her incision, no appreciable mass or hernia. There is no erythema, rash or calor. Negative Rovsing's, no rigidity, guarding or focal peritoneal signs. Neurological: Alert and oriented x 3, CN 2-12 grossly intact, normal gait no ataxia, DTR's intact, normal sensation and strength Skin: Warm, dry, no rashes, no nodules on palpation. Musculoskeletal: Extremities are symmetrical, full range of motion, no tenderness, deformity, swelling, or erythema. Psychiatric: Patient is oriented X 3, there is no agitation. MEDICAL DECISION MAKING: Patient was seen independently. Secondary supervising physician at time of evaluation was Dr. Ch. Diagnosis: Abdominal pain, nausea and vomiting. New, requires workup Summary: See Assessment and Plan for summary of ED visit Clinical lab tests: ordered / reviewed. Independent visualization of images, tracing, or specimens: Yes. Decision to obtain medical records or history from someone other than the patient: No Review / Summarize previous medical records: Yes Discussed patient with another provider: Yes, Dr. Ch Patient Progress: Stable. - Objective Vital Signs: Initial Vital Signs Temperature (C) 36.6 C 11/16/18 09:11 Heart Rate 76 11/16/18 09:11 Respiratory Rate 17 11/16/18 09:11 Blood Pressure 148/92 H 11/16/18 09:11 O2 Sat (%) 96 11/16/18 09:11 O2 Delivery Mode Room Air Allergies/Adverse Reactions: No Known Allergies Allergy (Verified 11/16/18 09:11) Home Medications: Medication Instructions Recorded NK [No Known Home Meds] 11/16/18 Laboratory Results: Laboratory Results 11/16/18 10:19 11/16/18 10:19 Medications Given: Discontinued Medications Hydromorphone HCl (Dilaudid) 0.5 mg IVP EDNOW ONE Stop: 11/16/18 09:54 Last Admin: 11/16/18 10:27 Dose: 0.5 mg Sodium Chloride (Ns) 1,000 mls @ 0 mls/hr IV ONCE ONE PRN Reason: Wide Open Stop: 11/16/18 09:54 Last Admin: 11/16/18 10:20 Dose: 1,000 mls Ketorolac Tromethamine (Toradol) 30 mg IVP EDNOW ONE Stop: 11/16/18 13:19 Last Admin: 11/16/18 13:31 Dose: 30 mg Ondansetron HCl (Zofran) 4 mg IVP Q4 PRN PRN Reason: Nausea/Vomiting, Can't Take PO Stop: 05/15/19 09:52 Last Admin: 11/16/18 10:20 Dose: 4 mg Point of Care Test Results: Chemistry 11/16/18 10:39 POC Sodium 141 mEq/L mEq/L (135-145) POC Potassium 3.9 mEq/L mEq/L (3.3-5.0) POC Chloride 106 mEq/L mEq/L (97-110) POC BUN 9 mg/dL mg/dL (7-23) POC Creatinine 0.4 mg/dL L mg/dL (0.6-1.0) POC Glucose 126 mg/dL H mg/dL (70-100) ISTAT H&H 11/16/18 10:39 POC Hgb 15.0 gm/dL gm/dL (12.6-16.3) POC Hct 44 % % (38-47) Departure - Departure Disposition: Home, Routine, Self-Care Clinical Impression: Abdominal pain, Umbilical hernia Condition: Good Instructions: Acute Abdominal Pain (ED) Additional Instructions: DISCHARGE INSTRUCTIONS FROM YOUR DOCTOR Thank you for visiting our emergency department today. Please keep in mind that discharge from the emergency department does not mean that there is nothing wrong - it simply means that we have not identified an emergency condition that requires further evaluation or treatment in the hospital. You should always plan to follow up with primary care for re-evaluation of your condition in the next 2-3 days. Please follow-up with your primary care provider, please follow-up with Dr. Sears if your symptoms do not improve. For pain control: You may take Tylenol, I recommend 500-1000 mg every 6-8 hours as needed. Take with food and a full glass of water. Stop taking if this is upsetting her stomach. Do not exceed [3000/4000] mg in a 24 hr period. You may also take ibuprofen, recommend 400 mg every 6 hr. Take with food and a full glass of water. Stop taking if this upsets her stomach. Do not exceed 2400 mg in a 24 hr period. People present with illnesses and injuries in different ways, and it is always possible that we have missed something. You may always return for re-evaluation if symptoms worsen or if they are not improving or if you develop new/different symptoms. Again, thank you for choosing our emergency department. We hope that you feel better. Referrals: Tobias Sears MD [Medical Doctor] - 2-3 days, call for appt. (General Surgery , call to schedule an appointment)
[2018-11-16] MEDS ORDERED: IOPAMIDOL (ISOVUE 370) 100 ML BTL IV ONE (10:32)
[2018-11-16 10:39] LABS: PLATELET COUNT 221 10^3/uL (150-400)
[2018-11-16] MEDS ORDERED: KETOROLAC 30 MG/1 ML SDV IVP ONE (13:18)
[2018-11-16 13:26] VITALS: BP 150/101
== END 2018-11-16 13:38 | disposition home or self-care (01) ==
DX: R10.11 Right upper quadrant pain (principal); K42.9 Umbilical hernia without obstruction or gangrene; E86.9 Volume depletion, unspecified; Z87.19 Personal history of other diseases of the digestive system
CPT/HCPCS: 82435-PO; 82565-PO; 82947-PO; 84132-PO; 84295-PO; 84520-PO; 85014-ER; 96374; J1170; J1885; J2405; Q9967

== ENCOUNTER 2019-02-24 14:54 | Emergency (ER) | payer MEDICAID, OTHER ==
[2019-02-24] MEDS ORDERED: ONDANSETRON 4 MG/2 ML VIAL IVP ONE (15:40)
[2019-02-24] MEDS ORDERED: HYDROmorphONE/DILAUDID 2 MG/ML INJ IVP ONE (15:40)
[2019-02-24] MEDS ORDERED: NS 1,000 ML IV ONE (15:40)
--- NOTE | 2019-02-24 15:46 | EDPHY ---
H & P Stated Complaint: Umbilical hernia site pain Time Seen by Provider: 02/24/19 15:23 HPI/ROS: CHIEF COMPLAINT: Mid abdominal pain HISTORY OF PRESENT ILLNESS: 33-year-old female with a history of an umbilical hernia repair in 2017 who had a recurrence of her hernia earlier this year, as demonstrated by CT scan, presents reporting that today she picked up a heavy tray and immediately felt right periumbilical discomfort. Patient reports that she feels like she has a bulge in this area and she also complaining of increasing right mid and lower quadrant pain as well as numbness on the top of her right leg. Some nausea but no vomiting. No fever. Patient was otherwise well prior to this event. Denies urinary complaints. No fever, chills, chest pain, shortness of breath, palpitations, vomiting, diarrhea, urinary complaints, headache, lightheadedness. REVIEW OF SYSTEMS: A comprehensive 10 system review of systems was reviewed and is otherwise negative aside from elements mentioned in the history of present illness and medical decision making. PAST MEDICAL HISTORY: Umbilical hernia repair 2017, has an IUD. Prior appendectomy SOCIAL HISTORY: Nonsmoker. Here with her . VITAL SIGNS Reviewed by me. GENERAL: Overweight female, reporting moderate abdominal discomfort. HEENT: Atraumatic. Eyes: No icterus, no injection. Mouth: moist mucous membranes. No erythema or lesions. Neck: supple with no adenopathy. LUNGS: Clear to auscultation bilaterally, no wheezes, rhonchi or rales. CARDIAC: Regular rate and rhythm, no rubs, murmurs or gallops. ABDOMEN: Soft, moderately obese. No bulges palpated, small abdominal wall defect is palpable just to the right of the umbilicus. Diffuse right lower quadrant tenderness to palpation, unable to appreciate a inguinal hernia. BACK: No CVA tenderness. EXTREMITIES: No trauma. No edema. Range of motion is normal throughout. NEURO: Alert and oriented, reports burning sensation on the anterior proximal right thigh, sensation intact to light touch. SKIN: Warm and dry, no rash. PSYCHIATRIC: Normal mentation, no agitation. - Personal History LMP (Females 10-55): IUD In Place Current Tetanus/Diphtheria Vaccine: Unsure Current Tetanus Diphtheria and Acellular Pertussis (TDAP): Unsure Tetanus Vaccine Date: < 10 years - Medical/Surgical History Hx Asthma: No Hx Chronic Respiratory Disease: No Hx Diabetes: No Hx Cardiac Disease: No Hx Renal Disease: No Hx Cirrhosis: No Hx Alcoholism: No Hx HIV/AIDS: No Hx Splenectomy or Spleen Trauma: No Other PMH: umbilical hernia. Gall bladder removed 2016. Appendectomy. Knee surgery . anemia. ovaran cyst - Social History Smoking Status: Never smoked Constitutional: Initial Vital Signs Temperature (C) 36.4 C 02/24/19 14:57 Heart Rate 93 02/24/19 14:57 Respiratory Rate 16 02/24/19 14:57 Blood Pressure 133/73 H 02/24/19 14:57 O2 Sat (%) 96 02/24/19 14:57 O2 Delivery Mode Room Air O2 (L/minute) 2 Allergies/Adverse Reactions: No Known Allergies Allergy (Verified 02/24/19 15:01) Home Medications: Medication Instructions Recorded Hydrocodone/APAP 5/325 [[place] 1 tab PO Q6H PRN #10 tab 02/24/19 5/325 (RX)] Medical Decision Making - Diagnostics Imaging Results: CT Scan Impression: 1. Negative for acute intra-abdominal process. Resolution of previously seen omental inflammation. 2. Right adnexal cyst measuring 2.8 cm. 3. Fatty liver. Findings and recommendations discussed with Carmen Akers MD at 1642 hour, . Dictated By: Lakisha Miller MD Imaging: Discussed imaging studies w/ teacher physically impaired Radiologist ED Course/Re-evaluation: CT scan of the abdomen pelvis order to further evaluate patient's potential both recurrence of a umbilical hernia at as well as other intra-abdominal causes of the patient's right lower quadrant pain. CT scan demonstrates resolution of the omental inflammatory changes which have been present previously, no evidence of incarcerated or strangulated hernia. Cyst in the right adnexal area. Discussed the CT results with the patient. She was reassured by the fact that her hernia has not reoccurred. Labs are normal including negative test. Somewhat unclear etiology of the patient's discomfort on the anterior thigh. May be related to the small amount of fluid in the pelvis. Patient caution to be re-evaluated if she has worsening pain on the thigh, weakness, or inability to walk. Discharge with supportive care. Differential Diagnosis: The differential diagnosis for the patient's abdominal pain was considered including but not limited to ovarian cyst, pelvic inflammatory disease, ovarian torsion, urinary tract infection, related complications, umbilical hernia with complications. - Data Points Laboratory Results: Laboratory Results 02/24/19 15:10 02/24/19 15:10 Medications Given: Discontinued Medications Hydromorphone HCl (Dilaudid) 1 mg IVP EDNOW ONE Stop: 02/24/19 15:41 Last Admin: 02/24/19 15:51 Dose: 1 mg Sodium Chloride (Ns) 1,000 mls @ 0 mls/hr IV EDNOW ONE; Wide Open PRN Reason: Protocol Stop: 02/24/19 15:41 Last Admin: 02/24/19 15:52 Dose: 1,000 mls Ketorolac Tromethamine (Toradol) 30 mg IVP EDNOW ONE Stop: 02/24/19 16:57 Last Admin: 02/24/19 17:04 Dose: 30 mg Ondansetron HCl (Zofran) 4 mg IVP EDNOW ONE Stop: 02/24/19 15:41 Last Admin: 02/24/19 15:51 Dose: 4 mg Departure - Departure Disposition: Home, Routine, Self-Care Clinical Impression: Abdominal pain Qualifiers: Abdominal location: right lower quadrant Qualified Code(s): R10.31 - Right lower quadrant pain Ovarian cyst Qualifiers: Laterality: right Qualified Code(s): N83.201 - Unspecified ovarian cyst, right side Condition: Good Instructions: Ovarian Cyst (ED), Abdominal Pain (ED) Additional Instructions: Please use ibuprofen 600 mg every 6-8 hours on a regular basis for the next several days to help with abdominal pain. This also help with inflammation. You been given a prescription for hydrocodone. You may use this as needed for more severe pain. Please follow up with primary care physician if you're not improving as expected over the next 2-3 days. Referrals: [facility],. [Primary Care Provider] - As per Instructions Prescriptions: Hydrocodone/APAP 5/325 [[place] 5/325 (RX)] 1 tab PO Q6H PRN #10 tab PRN Reason: Pain
[2019-02-24 15:50] LABS: PLATELET COUNT 217 10^3/uL (150-400)
[2019-02-24] MEDS ORDERED: IOPAMIDOL (ISOVUE-300) 100 ML BTL ONE (16:01)
[2019-02-24] MEDS ORDERED: KETOROLAC 30 MG/1 ML SDV IVP ONE (16:56)
[2019-02-24 17:55] VITALS: BP 107/58
== END 2019-02-24 17:35 | disposition home or self-care (01) ==
DX: N83.201 Unspecified ovarian cyst, right side (principal); R10.31 Right lower quadrant pain
CPT/HCPCS: 96374; J1170; J1885; J2405; Q9967

== ENCOUNTER 2019-03-15 21:26 | Emergency (ER) | payer MEDICAID, OTHER ==
[2019-03-15] MEDS ORDERED: KETOROLAC 15 MG/1 ML SDV IVP ONE (21:59)
--- NOTE | 2019-03-15 22:01 | EDPHY ---
H & P Stated Complaint: under left breast pain reproducible with breathing and palpation x 1 hr sob Time Seen by Provider: 03/15/19 21:51 HPI/ROS: Chief Complaint: Chest pain HPI: 33-year-old woman had onset of left-sided chest pain below her collar bone about 1 hr ago. It hurt to move. It hurts to take a deep breath. Pain is now migrated to below her left breast. Currently a 4/10. No longer short of breath. No fevers or chills. No cough. Does not have a history of similar pain in the past. She was sitting at rest drinking a glass of water when it started. No dyspnea on exertion. No family history of coronary disease. She does not smoke. She is not on control. No recent periods of immobility. No leg pain or swelling. ROS: 10 systems were reviewed and were negative except those elements noted in the HPI. PMH: Denies Social History: No smoking, no alcohol, no recreational drug use Family History: No family history of coronary artery disease or arrhythmia Physical Exam: Gen: Awake, Alert, No Distress HEENT: Nose: no rhinorrhea Eyes: PERRLA, EOMI Mouth: Moist mucosa Neck: Supple, no JVD Chest: Patient has reproducible chest pain in her midclavicular line at approximately ribs 3 through 6 reproducing her presenting complaint., lungs clear to auscultation Heart: S1, S2 normal, no murmur Abd: Soft, non-tender, no guarding Back: no CVA tenderness, no midline tenderness Ext: no edema, non-tender Skin: no rash Neuro: CN II-XII intact, Sensation grossly intact, Strength 5/5 in bilateral upper and lower extremities - Personal History LMP (Females 10-55): Unknown Current Tetanus/Diphtheria Vaccine: Yes Current Tetanus Diphtheria and Acellular Pertussis (TDAP): Yes Tetanus Vaccine Date: < 10 years - Medical/Surgical History Hx Asthma: No Hx Chronic Respiratory Disease: No Hx Diabetes: No Hx Cardiac Disease: No Hx Renal Disease: No Hx Cirrhosis: No Hx Alcoholism: No Hx HIV/AIDS: No Hx Splenectomy or Spleen Trauma: No Other PMH: umbilical hernia. Gall bladder removed 2016. Appendectomy. Knee surgery . anemia. ovarian cysts. ovaran cyst - Social History Smoking Status: Never smoked Constitutional: Initial Vital Signs Temperature (C) 36.7 C 03/15/19 21:35 Heart Rate 82 03/15/19 21:35 Respiratory Rate 18 03/15/19 21:35 Blood Pressure 131/100 H 03/15/19 21:35 O2 Sat (%) 95 03/15/19 21:35 O2 Delivery Mode Room Air Allergies/Adverse Reactions: No Known Allergies Allergy (Verified 03/15/19 21:38) Home Medications: Medication Instructions Recorded NK [No Known Home Meds] 03/15/19 Medical Decision Making - Diagnostics EKG Interpretation: ECG time 9:41 p.m., sinus rhythm with a rate of 81, normal axis, normal intervals, no acute ST or T-wave changes. Impression: Normal ECG. ED Course/Re-evaluation: 33-year-old woman with reproducible upper chest wall pain. Normal ECG. Normal troponin. No risk factors for coronary disease. No risk factors for thromboembolic disease. Otherwise normal exam. She has been reassured. Will discharge with follow-up with primary care physician. - Data Points Laboratory Results: 03/15/19 21:48 POC Troponin I 0.00 ng/mL ng/mL (0.00-0.08) Medications Given: Discontinued Medications Ketorolac Tromethamine (Toradol) 15 mg IVP EDNOW ONE Stop: 03/15/19 22:00 Last Admin: 03/15/19 22:08 Dose: 15 mg Point of Care Test Results: Chemistry 03/15/19 21:48 POC Troponin I 0.00 ng/mL ng/mL (0.00-0.08) Departure - Departure Disposition: Home, Routine, Self-Care Clinical Impression: Chest wall pain Condition: Good Instructions: Chest Wall Pain (ED) Additional Instructions: Follow up with primary care physician in 2-3 days for further evaluation. Referrals: Patient,NotPresent [Unknown] - As per Instructions
[2019-03-15 23:19] VITALS: BP 138/90
== END 2019-03-15 23:19 | disposition home or self-care (01) ==
LOC: EDUNIT#
DX: R07.89 Other chest pain (principal)
CPT/HCPCS: 84484-ER; 96374; J1885